=== PATIENT | male | born 1985 | race Caucasian/White ===

== ENCOUNTER 2021-02-16 17:13 | Emergency (ER) | payer OTHER ==
[~2021-02-16] VITALS: Ht 170.2 cm; Wt 71.6 kg
[2021-02-16 17:45] VITALS: BP 109/61
[2021-02-16] MEDS ORDERED: METHOCARBAMOL 750 MG TABLET PO ONE (18:30)
[2021-02-16] MEDS ORDERED: LIDODERM 5% PATCH TD ONE ×2 (18:30→18:50)
[2021-02-16] MEDS ORDERED: KETOROLAC 30 MG/1 ML IM ONE (18:30)
[2021-02-16] MEDS ORDERED: KETOROLAC 30 MG/1 ML ONE (18:50)
[2021-02-16] MEDS ORDERED: METHOCARBAMOL 750 MG TABLET ONE (18:50)
--- NOTE | 2021-02-16 18:57 | NUR ---
Syl flaherty in [facility] - 02/16/21 at 1901 by GLENIS REPORT RECIEVED FROM TOBI ROWLAND
--- NOTE | 2021-02-16 18:57 | NUR ---
Syl flaherty in [facility] - 02/16/21 at 1901 by GLENIS PT JUST WOKE UP OUT OF SEDATION, PT KNOWS NAME AND BIRTHDAY
--- NOTE | 2021-02-16 18:58 | NUR ---
TASK RN: PT MEDICATED, PT REFUSED ROBAXIN, BUT TOOK PAIN MED AND PATCH. [facility].
--- NOTE | 2021-02-16 19:33 | NUR ---
PT STATED MEDICATION BROUGHT DOWN THE INTENSITY OF THE PAIN WHEN HE MOVES.
--- NOTE | 2021-02-16 20:32 | NUR ---
Task RN: Patient given discharge instructions and they have confirmed that they understand the instructions. Patient ambulatory with steady gait.
== END 2021-02-16 20:34 | disposition home or self-care (01) ==
LOC: ED 20:25
DX: S39.012A Strain of muscle, fascia and tendon of lower back, initial encounter (principal); X58.XXXA Exposure to other specified factors, initial encounter; Y93.89 Activity, other specified; Y92.89 Other specified places as the place of occurrence of the external cause; Y99.8 Other external cause status
CPT/HCPCS: 72110; 96372; 99283; J1885